=== PATIENT | male | born 1950 | race Caucasian/White ===

== ENCOUNTER 2022-03-31 08:43 | Emergency (ER) | payer MEDICARE, SELFPAY ==
[2022-03-31 08:48] VITALS: BP 108/58; PULSE 61; RESP 20; TEMP 36.7; O2SAT 97
--- NOTE | 2022-03-31 09:25 | ED.URI ---
HPI - URI/Sore Throat General Chief Complaint: Upper Respiratory Infection Stated Complaint: cold flu Time Seen by Provider: 03/31/22 09:44 Source: patient and RN notes reviewed Mode of arrival: ambulatory Limitations: no limitations History of Present Illness HPI Narrative: 71-year-old male presents concern for 4 day history of cough and nasal drainage. Reports his has similar symptoms that has been sick or longer. Reports he has been taking Mucinex and NyQuil with relief of symptoms. He denies fever, chills, sweats. Reports body aches. MD elicited complaint: cough and sore throat Related Data Home Medications Medication Instructions Recorded Confirmed aspirin 81 mg tablet,delayed 81 mg PO DAILY 04/14/19 03/31/22 release (Adult Low Dose Aspirin) ezetimibe 10 mg tablet (Zetia) 10 mg PO DAILY 04/14/19 03/31/22 rizatriptan 10 mg tablet See Rx Instructions PO .COMPLEX 04/14/19 03/31/22 esomeprazole magnesium 20 mg 20 mg PO DAILY 05/15/21 03/31/22 capsule,delayed release (Nexium 24HR) pravastatin 20 mg tablet 40 mg PO DAILY 05/15/21 03/31/22 atenolol 25 mg tablet 25 mg PO DAILY 07/09/21 03/31/22 hydrochlorothiazide 25 mg tablet 25 mg PO DAILY 07/09/21 03/31/22 Allergies Allergy/AdvReac Type Severity Reaction Status Date / Time No Known Allergies Allergy Verified 03/31/22 09:33 Review of Systems Review of Systems: CONSTITUTIONAL: Denies malaise, chills, sweats, or fever. EYES: Denies visual changes, redness, or discharge. ENT: Reports rhinorrhea, congestion. She sinus pain, otalgia and sore throat. CARDIOVASCULAR: Denies chest pain, palpitations, or edema. RESPIRATORY: Reports cough. Denies dyspnea. GASTROINTESTINAL: Denies abdominal pain, nausea, vomiting, diarrhea SKIN: Denies rash or itching. MUSCULOSKELETAL: Reports myalgia. NEUROLOGIC: Denies headache. All systems reviewed & are unremarkable except as noted in HPI and below PMFSH Past Medical History Medical History Lumbar disc herniation Surgical History Surgical History H/O lumbar discectomy History of angioplasty of peripheral vessel Hx of CABG Status post femorofemoral bypass surgery Family History Family History Mother Family history of cardiovascular disease Carcinoma of colon Social History Social History (Updated 03/04/22 @ 10:59 by Luna Tabor [facility]) Smoking status: Former smoker Second hand tobacco smoke exposure: No Smoking end date: 04/05/17 Alcohol intake: never Substance use type: does not use Lack of Transportation: No Lack of Food: Never True Current Housing: I Have Housing Concerned About Future Housing: No Difficulty Paying Gas/Electric Bills: No Difficulty Paying for Meds: No Currently Unemployed: No Education: High School Diploma/GED Difficulty w/ Childcare or Family Care: No Comments At time of signature, agree with nursing past medical, surgical, social and family history. There is no relevant family history pertinent to the presenting complaint Exam Narrative: GENERAL: Well-appearing, well-nourished, and in no acute distress. HEAD: Normocephalic EYES: PERRLA, conjunctivae clear ENT: Nares clear, turbinates edematous and erythematous, clear discharge. Mucous membranes moist. TM pearly [place] with dull light reflex bilaterally; no tragal tenderness. Oropharynx not erythematous without lesions. Tonsils not enlarged and without exudate, no drooling, no hoarseness, no trismus, uvula midline. NECK: Supple. No lymphadenopathy CHEST: Clear to auscultation, breath sounds equal. No wheezing, rhonchi, rales, or stridor. No respiratory distress, speaks in full sentences. HEART: Regular rate and rhythm. No murmur heard. SKIN: Warm, dry, no rash. NEURO: Alert and oriented x3. PSYCH: Normal mood and affect Course Course Emerg
== END 2022-03-31 09:44 | disposition home or self-care (01) ==
PROVIDERS: Emergency Provider Nurse Practitioner; PCP Family Medicine
DX: J40 Bronchitis, not specified as acute or chronic (principal); Z87.891 Personal history of nicotine dependence; Z79.82 Long term (current) use of aspirin
CPT/HCPCS: 99213; G0463

== ENCOUNTER 2023-01-18 14:39 | Emergency (ER) | payer MEDICARE, SELFPAY ==
[2023-01-18] VITALS (9 sets, daily range): BP systolic 116–139; BP diastolic 46–96; PULSE 50–90; RESP 12–25; TEMP 37; O2SAT 93–100
--- NOTE | ~2023-01-18 | XR_ITS ---
XR chest 2V DATE: 01/18/2023 15:07 INDICATION: Cough for 2 to 3 weeks. Weakness. TECHNIQUE: PA and lateral views COMPARISON: None FINDINGS: Status post sternotomy. Normal heart size. No hilar or mediastinal enlargement. No pulmonary infiltrate or consolidation, pleural effusion or pulmonary vascular congestion or pneumo thorax. Mild degenerative spurring of the thoracic spine. IMPRESSION: Status post sternotomy No active cardiopulmonary disease Reviewed, dictated and finalized at location B.
--- NOTE | ~2023-01-18 | CT_ITS ---
EXAMINATION: CT thoracic lumbar wo con DATE: 01/18/2023 17:45 INDICATION: Mid back pain. TECHNIQUE: Computed tomography (CT) of the thoracic and lumbar spine was performed without intravenou s contrast. Automated exposure control and iterative reconstruction technique were employed. The dose -length product was 1199.08 mGy-cm. COMPARISON: None FINDINGS: CT THORACIC SPINE: There is mild dependent atelectasis in right lung. There are changes of coronary a rtery bypass grafting. There are calcifications of aortic valve. There is 7 degrees levocurvature of thoracic spine. There is mild chronic anterior wedging of T8-T12 vertebral bodies. There are Schmorl' s nodes at multiple levels. There is mildly decreased disc height at T5-T6, moderately decreased disc height at T7-T8, and mildly decreased disc height from T8-T9 through T10-T11. There is multilevel mi ld facet joint osteoarthritis. On the right, there is severe facet joint osteoarthritis at T7-T8, T8- T9, and T9-T10. On the left, there is severe facet joint osteoarthritis at T8-T9, and T10-T11. There is multilevel mild neural foraminal stenosis bilaterally. No central canal stenosis. CT LUMBAR SPINE: There are stents in the common iliac arteries. There is 3 degrees levocurvature of l umbar spine. There are Schmorl's nodes at multiple levels. There is mildly decreased disc height at L 2-L3. The following disc levels are specifically discussed: L1-L2: The disc does not extend beyond the endplate margin. There is mild bilateral facet joint osteo arthritis. There is no neural foraminal stenosis. There is no central canal stenosis. L2-L3: The disc is bulging. There is mild bilateral facet joint osteoarthritis. There is mild bilater al neural foraminal stenosis. There is mild central canal stenosis. L3-L4: The disc is bulging. There is severe right and moderate left facet joint osteoarthritis. There is mild bilateral neural foraminal stenosis. There is mild central canal stenosis. L4-L5: The disc is bulging. There is severe bilateral facet joint osteoarthritis. There is moderate b ilateral neural foraminal stenosis. There is mild central canal stenosis. L5-S1: The disc is bulging. There is severe bilateral facet joint osteoarthritis. There is mild bilat eral neural foraminal stenosis. There is mild central canal stenosis. IMPRESSION: 1. Moderate thoracic and lumbar spondylosis. Reviewed, dictated and finalized at location E.
--- NOTE | 2023-01-18 14:46 | ECG_ITS ---
Measurements Intervals [place] Rate: 100 P: 59 MD: 165 QRS: -64 QRSD: 101 T: 50 QT: 346 QTc: 447 Interpretive Statements SINUS TACHYCARDIA BASELINE ARTIFACT POSSIBLE LEFT ATRIAL ENLARGEMENT [-0.1mV P-WAVE IN V1/V2] INCOMPLETE RIGHT BUNDLE BRANCH BLOCK [90+ ms QRS DURATION, TERMINAL R IN V1/V2, 40+ ms S IN I/aVL/V4/V5/V6] LEFT ANTERIOR FASCICULAR BLOCK [QRS AXIS <= -45, QR IN I, RS IN II] ST DEVIATION AND MODERATE T-WAVE ABNORMALITY, CONSIDER ANTERIOR ISCHEMIA [-0.1+ mV T- WAVE IN V3/V4] ABNORMAL ECG NO PREVIOUS ECG AVAILABLE FOR COMPARISON Electronically Signed On 01-18-2023 17:13:20 CDT by Geoffrey Don M.D.
[2023-01-18 15:02] LABS: Basophils Percent Auto 0.1 % (0.2-1.2); Hematocrit 47.8 % (42.0-52.0); Hemoglobin 15.8 g/dL (14.0-18.0); Immature Granulocyte Absolute 0.02 K/mm3 (0.00-0.031); Immature Granulocyte Percent A 0.3 % (0-0.5); Lymphocytes Absolute Auto 1.05 K/mm3 (0.9-3.2); Lymphocytes Percent Auto 13.7 % (18.3-44.2); Mean Corpuscular HGB Conc 33.1 g/dl (32-36); Mean Corpuscular Hemoglobin 29.3 pg (26-34); Mean Corpuscular Volume 88.5 fl (80-100); Monocytes Absolute Auto 0.5 K/mm3 (0.1-0.6); Monocytes Percent Auto 6.4 % (2.6-8.5); Neutrophils Absolute Auto 6.1 K/mm3 (1.3-6.7); Neutrophils Percent Auto 79.5 % (45.5-73.1); Platelet Count Result 204 k/mm3 (150-375); Red Cell Distribution Width 12.4 % (11.5-14.5); White Blood Count 7.7 K/mm3 (4.5-10.0)
[2023-01-18 15:12] LABS: Alanine Aminotransferase 31 U/L (6-50); Alkaline Phosphatase 73 U/L (38-126); Anion Gap 10 mmol/L (8-16); Aspartate Amino Transferase 39 U/L (17-59); Bilirubin,Total 0.8 mg/dL (0.2-1.3); Blood Urea Nitrogen 21 mg/dL (9-20); Calcium 8.5 mg/dL (8.4-10.2); Carbon Dioxide 21 mmol/L (22-30); Chloride 103 mmol/L (98-107); Estimated CRCL calculation 55 ml/min; Estimated Glomerular Filt Rate > 60; Glucose 125 mg/dL (65-110); Sodium 134 mmol/L (137-145)
--- NOTE | 2023-01-18 17:35 | ED.GENADULT ---
HPI - General Adult General Chief complaint: Weakness Stated complaint: body aches and fever x 12 days Time Seen by Provider: 01/18/23 17:21 Source: patient Mode of arrival: ambulatory Limitations: no limitations History of Present Illness HPI narrative: This is a 72-year-old male with PMH of T2DM, CAD, lumbar radiculopathy who presents to the ED with chief complaint of generalized weakness for the past 2 weeks. Reports he feels this started with mid to lower back pain. Reports it radiates from the left side of the mid back down to the left side of the low back. Reports he has had history of lumbar radiculopathy, however today is not radiating into the legs. Reports the back pain makes his legs feel generally weak. States he has been able to ambulate it just takes longer than normal. Denies numbness, weakness, N/V/D, URI symptoms, shortness of breath, chest pain, urinary symptoms. Denies any falls or injuries. Denies bowel or bladder dysfunction. Related Data Home Medications Medication Instructions Recorded Confirmed aspirin 81 mg tablet,delayed 81 mg PO DAILY 04/14/19 09/02/22 release (Adult Low Dose Aspirin) ezetimibe 10 mg tablet (Zetia) 10 mg PO DAILY 04/14/19 09/02/22 rizatriptan 10 mg tablet See Rx Instructions PO .COMPLEX 04/14/19 09/02/22 esomeprazole magnesium 20 mg 20 mg PO DAILY 05/15/21 09/02/22 capsule,delayed release (Nexium 24HR) pravastatin 20 mg tablet 40 mg PO DAILY 05/15/21 09/02/22 atenolol 25 mg tablet 25 mg PO DAILY 07/09/21 09/02/22 hydrochlorothiazide 25 mg tablet 25 mg PO DAILY 07/09/21 09/02/22 Allergies Allergy/AdvReac Type Severity Reaction Status Date / Time No Known Allergies Allergy Verified 01/18/23 16:40 Review of Systems Review of Systems: All systems as dictated in [facility] Past Medical History Medical History Lumbar disc herniation Surgical History Surgical History H/O lumbar discectomy History of angioplasty of peripheral vessel Hx of CABG Status post femorofemoral bypass surgery Family History Family History Mother Family history of cardiovascular disease Carcinoma of colon Social History Social History Smoking status: Former smoker Second hand tobacco smoke exposure: No Smoking end date: 04/05/17 Alcohol intake: never Substance use type: does not use Lack of Transportation: No Lack of Food: Never True Current Housing: I Have Housing Concerned About Future Housing: No Difficulty Paying Gas/Electric Bills: No Difficulty Paying for Meds: No Currently Unemployed: No Education: High School Diploma/GED Difficulty w/ Childcare or Family Care: No Exam Narrative: GENERAL: Well-appearing, well-nourished, and in no acute distress. HEAD: Normocephalic, atraumatic. EYES: PERRLA and EOMI. ENT: Nares clear, no rhinorrhea or epistaxis. Mucous membranes moist. Oropharynx without tonsillar hypertrophy exudate or other lesions. NECK: Supple. No adenopathy or masses. CHEST: No respiratory distress. Clear to auscultation. No wheezes rales or rhonchi HEART: Regular rate and rhythm. No murmur heard. Normal peripheral pulses. ABDOMEN: Soft, nontender, nondistended, normal active bowel sounds. MSK: Normal range of motion. No edema. No tenderness throughout the CT LS spine. SKIN: Warm, dry, no rash. NEURO: Alert and oriented x3. No focal deficits. 5 out of 5 strength and sensation in the upper and lower extremities. Ambulatory. PSYCH: Normal mood and affect. Course Vital Signs Vital signs: Vital Signs Temperature 98.6 F 01/18/23 14:42 Pulse Rate 50 L 01/18/23 14:42 Respiratory Rate 18 01/18/23 14:42 Blood Pressure 116/46 L 01/18/23 14:42 Pulse Oximetry 100 01/18/23 14:42 Oxygen Delivery Room
[2023-01-18 18:21] LABS: Appearance Urine Clear (Clear); Bacteria Urine None Seen /hpf; Bilirubin Urine Negative (Negative); Blood Urine Negative (Negative); Color Urine Dark Yellow (Yellow); Glucose Urine UA Negative (Negative); Hyaline Casts Urine Present /lpf; Ketones Urine Trace mg/dL (Negative); Leukocyte Esterase Ur Negative LEU/UL (Negative); Nitrate Urine Negative (Negative); Non Pathogenic Casts >20; Protein Urine 2+ mg/dL (Negative); RBC Urine 0-2 /hpf (0-2); Specific Grav Ur 1.022 (1.001-1.035); Squamous Epithelial Cell Urine None seen /hpf (Few); WBC Urine 0-5 /hpf
[2023-01-18 18:22] LABS: Add Urine Microscopic? YES
== END 2023-01-18 18:48 | disposition home or self-care (01) ==
PROVIDERS: Emergency Medicine; Emergency Provider Physician Assistant; PCP Family Medicine
DX: M54.50 Low back pain, unspecified (principal); M54.6 Pain in thoracic spine; G89.29 Other chronic pain; I25.10 Atherosclerotic heart disease of native coronary artery without angina pectoris; E11.9 Type 2 diabetes mellitus without complications; Z95.1 Presence of aortocoronary bypass graft; Z87.891 Personal history of nicotine dependence; Z98.61 Coronary angioplasty status; Z79.82 Long term (current) use of aspirin; Z79.84 Long term (current) use of oral hypoglycemic drugs; R00.0 Tachycardia, unspecified; R94.31 Abnormal electrocardiogram [ECG] [EKG]; I45.10 Unspecified right bundle-branch block; M47.816 Spondylosis without myelopathy or radiculopathy, lumbar region; M47.814 Spondylosis without myelopathy or radiculopathy, thoracic region
CPT/HCPCS: 36415; 71046; 72128; 72131; 80053; 81001; 85025; 93005; 99284

== ENCOUNTER → 2023-01-26 09:06 | Outpatient (CLI) | payer MEDICARE, SELFPAY ==
--- NOTE | ~2023-01-26 | US_ITS ---
Abdominal Sonogram: Real-time sonographic imaging of the abdomen was performed. Clinical History: Abdominal pain Findings: The liver appears normal with no evidence of mass lesion or bile duct dilatation. Main por samm vein demonstrates normal direction of flow. The spleen is normal in size without evidence of foca l lesion. The gallbladder is well distended, and appears normal with no evidence of gallstone or wal l thickening. The common bile duct measures 6 mm. The pancreas is obscured by bowel gas shadowing. V isualized aorta and IVC are unremarkable. The right kidney measures 9.9 cm in length and the left kid dylan measures 10.7 cm. There is no hydronephrosis or renal calculus. Impression: No significant abnormality seen. Reviewed, dictated and finalized at [facility]. Impression: No significant abnormality seen.
== END ==
PROVIDERS: PCP Family Medicine; Visit Provider Nurse Practitioner Family
DX: R10.9 Unspecified abdominal pain (principal)
CPT/HCPCS: 76700

== ENCOUNTER 2023-09-15 09:52 | Outpatient (CLI) | payer MEDICARE, SELFPAY ==
--- NOTE | 2023-09-15 09:57 | ECHO_ITS ---
Patient Info Name: Salomón Galaviz Age: 73 years : 1950 Gender: Male Ht: 70 in Wt: 190 lbs BSA: 2.08 m2 HR: 70 bpm BP: 184 / 71 mmHg Technical Quality: Good Exam Date: 09/15/2023 10:13 AM Exam Location: Echo Lab Patient Status: Outpatient Admit Date: 09/15/2023 Staff Ordering Physician: Brayan Loo MD Shut Off Worker: Chago Lopez RDCS Attending Provider: Brayna Loo MD Referring Physician: Eze MORRISON; Exam Type: CA echo doppler color flow Study Info Indications R01.1 - Cardiac murmur, unspecified Complete two-dimensional, color flow and Doppler transthoracic echocardiogram is performed. Summary 1. Complete two-dimensional, color flow and Doppler transthoracic echocardiogram is performed. 2. Left ventricular chamber dimension is normal. 3. Left ventricular systolic function is normal, estimated at 55-60%. 4. Left ventricular septal wall motion is abnormal with septal motion related to bundle branch block. 5. The left ventricular diastolic function is normal. 6. E/e' 7 is not elevated. 7. The aortic valve is not well visualized. Cannot determine number of aortic valve leaflets. 8. There is mild aortic valve stenosis based on a peak velocity of 234 cm/s, mean gradient of 10 mmHg, and aortic valve area of 2.0 cm2. 9. There is moderate aortic valve sclerosis. 10. There is mild to moderate mitral valve regurgitation. 11. No pulmonary hypertension, estimated pulmonary arterial systolic pressure is 16 mmHg. 12. There is trace pulmonic regurgitation. Left Ventricle E/e' 7 is not elevated. Left ventricular chamber dimension is normal. Left ventricular systolic function is normal, estimated at 55-60%. Left ventricular septal wall motion is abnormal with septal motion related to bundle branch block. The left ventricular diastolic function is normal. Right Ventricle Right ventricular systolic function is normal and with normal TAPSE 1.8 cm. Right ventricular chamber dimension is normal. Left Atria Left atrial chamber dimension is normal. Right Atria Right atrial chamber dimension is normal. Aortic Valve The aortic valve is not well visualized. Cannot determine number of aortic valve leaflets. There is mild aortic valve stenosis based on a peak velocity of 234 cm/s, mean gradient of 10 mmHg, and aortic valve area of 2.0 cm2. There is moderate aortic valve sclerosis. There is no aortic valve regurgitation. Pulmonic Valve There is trace pulmonic regurgitation. Mitral Valve There is no mitral valve stenosis. There is mild to moderate mitral valve regurgitation. Tricuspid Valve There is no tricuspid valve regurgitation. No pulmonary hypertension, estimated pulmonary arterial systolic pressure is 16 mmHg. Pericardium/Pleural There is no pericardial effusion. Inferior Vena Cava Normal inferior vena cava with >50% collapse upon inspiration consistent with normal right atrial pressure, 5 mmHg. Aorta The aortic root size at the sinus of Valsalva is normal. Left Ventricular Outflow Tract Name Value Normal LVOT 2D LVOT Diameter 2.2 cm LVOT Doppler LVOT Peak Gradient 7 mmHg LVOT Mean Gradient 3 mmHg LVOT VTI
== END 2023-09-15 09:53 | disposition home or self-care (01) ==
LOC: ANHLAB 09:54
PROVIDERS: PCP Family Medicine; Visit Provider Family Medicine
DX: R01.1 Cardiac murmur, unspecified (principal); I08.0 Rheumatic disorders of both mitral and aortic valves
CPT/HCPCS: 93306

== ENCOUNTER 2023-10-04 10:14 | Outpatient (CLI) | payer MEDICARE, SELFPAY ==
--- NOTE | ~2023-10-04 | US_ITS ---
EXAMINATION: US art doppler w press LE BI DATE: 10/04/2023 11:25 INDICATION: Peripheral vascular disease TECHNIQUE: Segmental pressures and plethysmographic and Doppler waveforms of the brachial and lower e xtremity arteries were obtained. COMPARISON: None. FINDINGS: Right and left brachial artery pressures of 141 mm Hg and 149 mm Hg, respectively, are concordant (no rmal difference <= 30 mmHg). The right ankle-brachial index (SUSAN) is 1.05 (normal >= 0.9-1). The right great toe-brachial index (T BI) is 0.74 (normal >= 0.6-0.8). Arterial waveforms are biphasic with brisk systolic upstrokes throug hout. Cardiac arrhythmia is present. The left SUSAN is 1.03. The left TBI is 0.62. Arterial waveforms are biphasic with brisk systolic upstr okes throughout the arteries of the left lower limb. IMPRESSION: 1. Normal SUSAN's bilaterally. No significant occlusive disease. 2. Cardiac arrhythmia is present. Correlate with EKG. Reviewed, dictated and finalized at location B.
== END 2023-10-04 10:15 | disposition home or self-care (01) ==
PROVIDERS: PCP Family Medicine; Visit Provider Family Medicine
DX: I73.9 Peripheral vascular disease, unspecified (principal); I49.9 Cardiac arrhythmia, unspecified; M48.062 Spinal stenosis, lumbar region with neurogenic claudication; Z98.62 Peripheral vascular angioplasty status
CPT/HCPCS: 93923

== ENCOUNTER 2023-11-16 07:56 | Outpatient (CLI) | payer MEDICARE, SELFPAY ==
--- NOTE | ~2023-11-16 | NM_ITS ---
EXAMINATION: NM khris stress w perfusion DATE: 11/16/2023 10:03 INDICATION: Other chest pain. TECHNIQUE: Rest images were obtained following intravenous administration of 11.0 mCi Tc99m tetrofosm in (Myoview). The patient was infused intravenously with Lexiscan (regadenoson). Then, 32.2 mCi Tc99m tetrofosmin (Myoview) was administered intravenously, and stress images were obtained. Data was shawna nstructed into short axis and horizontal and vertical long axis SPECT images. Gated SPECT images were also obtained. COMPARISON: None. FINDINGS: There is no definite reversible or fixed perfusion abnormality to suggest ischemia or infar ction. There is no segmental wall motion abnormality. Left ventricular ejection fraction measures 6 3%. IMPRESSION: 1. No definite ischemia or infarct. 2. Normal left ventricular ejection fraction measuring 63%. Reviewed, dictated and finalized at location A.
--- NOTE | 2023-11-16 08:20 | EST_ITS ---
Patient Info Name: Salomón Galaviz Age: 73 years : 1950 Gender: Male Ht: 70 in Wt: 190 lbs BSA: 2.08 m2 HR: 64 bpm BP: 175 / 78 mmHg Heart Rhythm: Sinus Rhythm Exam Date: 11/16/2023 9:09 AM Exam Location: Echo Lab Patient Status: Outpatient Admit Date: 11/16/2023 Staff Ordering Physician: Loc Del Rio DO Attending Provider: Loc Del Rio DO Exercise Technologist: Tamika Walsh CT Exercise Physician: Loc Del Rio DO Exam Type: CA stress khris w NM Study Info Indications R07.89 - Other chest pain A regadenoson stress test was performed. Summary 1. 1. Negative lexiscan stress test for ischemic ST changes by ECG criteria. 2. 2. Baseline hypertension. 3. 3. Nuclear scan to follow and will be reported separately. Please correlate with it. 4. 4. Patient informed of the above results. Protocol: Lexiscan Stress ECG Details Stage: REST Duration (min): 1 min : 51 sec HR (bpm): 66 SBP (mmHg): 175 DBP (mmHg): 78 Stage: REST Duration (min): 10 min : 22 sec HR (bpm): 64 SBP (mmHg): 175 DBP (mmHg): 78 Stage: STAGE 1 Duration (min): 0 min : 59 sec HR (bpm): 71 SBP (mmHg): 154 DBP (mmHg): 86 Stage: RECOVERY Duration (min): 1 min : 0 sec HR (bpm): 73 SBP (mmHg): 154 DBP (mmHg): 86 Stage: RECOVERY Duration (min): 2 min : 0 sec HR (bpm): 67 SBP (mmHg): 154 DBP (mmHg): 86 Stage: RECOVERY Duration (min): 3 min : 0 sec HR (bpm): 66 SBP (mmHg): 159 DBP (mmHg): 80 Stage: RECOVERY Duration (min): 3 min : 25 sec HR (bpm): 70 SBP (mmHg): 159 DBP (mmHg): 80 Rest HR: 64 bpm Peak HR: 76 bpm Rest Sys BP: 175 mmHg Peak Sys BP: 159 mmHg Max Pred HR: 146 bpm % Max Pred HR: 52 % Target HR: 124 bpm Max RPP: 12,084 bpm*mmHg Termination Reason: Completed protocol Cardiac Symptoms: Shortness of breath Total Time: 1 min : 0 sec Rest Dolan BP: 78 mmHg Peak Dolan BP: 80 mmHg Total Dose: 0.4 mg Resting ECG Sinus rhythm, RBBB, LAFB. Stress ECG No ST changes. Arrhythmias None. Report Signatures
== END 2023-11-16 07:57 | disposition home or self-care (01) ==
PROVIDERS: PCP Family Medicine; Visit Provider Internal Medicine Cardiovascular Disease
DX: R07.89 Other chest pain (principal); I10 Essential (primary) hypertension
CPT/HCPCS: 78452; 93017; A9502; J2785

== ENCOUNTER 2024-09-22 | Day surgery (SDC) | payer MEDICARE, SELFPAY ==
[2024-09-06 12:25] VITALS: BMI 28.0
[2024-09-22] VITALS (7 sets, daily range): BP systolic 114–163; BP diastolic 37–100; PULSE 55–73; RESP 12–33; TEMP 36.4; O2SAT 97–100; BMI 26.2
--- OUTSIDE RECORDS SUMMARY | 2024-09-22 00:02 | XMS_ITS | Clinical Summary ---
Author Organization [facility] Address [address] [place] [address] Care Team Providers Care Radarman Name Role Phone No, Physician Primary Care Provider [phone] Goyo Hill MD Unavailable [phone] Seferino Hernandez MD Unavailable [phone] Allergies No known active allergies Medications pravastatin (PRAVACHOL) 20 mg tablet Take 20 mg by mouth daily. 3 05/03/2017 Active ezetimibe (ZETIA) 10 mg tablet Take 10 mg by mouth daily. 2 05/03/2017 Active aspirin 81 mg tablet Take 81 mg by mouth daily. Active omega-3 fatty acids-fish oil 300-1,000 mg capsule Take 1 g by mouth daily. Active HYDROcodone-kike taminophen (NORCO) 5-325 mg per tabletIndicatio ns:Pain Take 1 tablet by mouth every 8 (eight) hours as needed for pain for up to 10 doses Earliest Fill Date: 06/17/17. 10 tablet 06/17/[address] (PROTONIX) 40 mg EC tablet Take 1 tablet (40 mg total) by mouth 2 (two) times a day. 60 tablet 06/17/2017 Active rizatriptan (MAXALT) 10 mg tabletIndicatio ns:Migraine Take 10 mg by mouth once as needed for migraine. May repeat in 2 hours if unresolved. Do not exceed 30 mg in 24 hours. Active HYDROcodone-kike taminophen (NORCO) 5-325 mg per tabletIndicatio ns:Pain Take 1-2 tablets by mouth every 6 (six) hours as needed for pain. 10 tablet 06/28/2017 Active docusate sodium (COLACE) 100 mg capsuleIndicati ons:constipatio n Take 1 capsule (100 mg total) by mouth 2 (two) times a day. 60 capsule 1 06/28/2017 Active Active Problems Problem Noted Date Diagnosed Date Sciatica of left side 06/09/2017 Assessment & Plan (06/09/2017 2:05 AM EXTERNAL GRINDER TENDER): Outpatient follow-up. CAD (coronary artery disease) 06/09/2017 Assessment & Plan (06/09/2017 2:03 AM EXTERNAL GRINDER TENDER): Patient is on aspirin 81 mg and pravastatin at home. Will hold as patient is NPO at this time. Tobacco abuse 06/09/2017 Assessment & Plan (06/09/2017 2:03 AM EXTERNAL GRINDER TENDER): Patient has smoked 1 pack per day since age 14. He states he will be quitting. Perforated gastric ulcer 06/09/2017 Perforated viscus 06/08/2017 Assessment & Plan (06/09/2017 2:13 AM EXTERNAL GRINDER TENDER): Per OR notes patient had a perforated gastric ulcer which was repaired. He is postop day 1. He is currently in the intensive care unit under the care of the customer marketing manager. Management will be per him and surgery. Continue with FLIGHT TEST SHOP MECHANIC for pain control. Peritonitis 06/08/2017 Assessment & Plan (06/15/2017 5:24 PM CDT): He remains afebrile. He is tolerating full liquids. He had a good bowel movement that was somewhat loose. He is off most of the systemic antibiotics but remains on fluconazole which we will also discontinue. He is still receiving treatment for H pylori. We will continue to monitor for any infectious complications. Assessment & Plan (06/09/2017 2:05 AM EXTERNAL GRINDER TENDER): gastric ulcer perforation status post ex lap with repair. Postop day 1. Pain of upper abdomen V-tach Adynamic ileus Acute abdomen Surgical History Surgery Date Site/Laterality Comments CORONARY ARTERY BYPASS GRAFT 04/05/2001 - 04/04/2002 PERIPHERAL ARTERIAL STENT GRAFT 04/05/2003 - 04/04/2004 Bilateral bilateral legs Medical History Medical History Date Comments Coronary artery disease Myocardial infarction (HCC) Peripheral vascular disease Ruptured lumbar disc Social History Tobacco Use Types Packs/Day Years Used Date Smoking Tobacco: Former Cigarettes Q uit: 06/08/2017 Smokeless Tobacco: Never Alcohol Use Standard Drinks/Week Comments No 0 (1 standard drink = 0.6 oz pur e alcohol) Sex and Gender Information Value Date Recorded Sex Assigned at Not on file Legal Sex Male 12:15 AM EXTERNAL GRINDER TENDER Gender Identity Not on file Sexual Orientation Not on file Obstetrics History Last Filed Vital Signs Vital Sign Reading Time Taken Comments Blood Pressure 136/72 06/28/2017 2:32 PM CDT Pulse 82 06/17/2017 11:34 AM CDT Temperature 36.9 C (98.5 F) 06/17/2017 11:34 AM CDT Respiratory Rate 22 06/17/2017 11:34 AM CDT Oxygen Saturation 94% 06/17/2017 11:34 AM CDT Inhaled Oxygen Concentration - - Weight 77 kg (169 lb 11.2 oz) 06/28/2017 2:32 PM CDT Height 177.8 cm (5' 10) 06/28/2017 2:32 PM CDT Body Mass Index 24.35 06/28/2017 2:32 PM CDT Plan of Treatment Not on file Insurance Member Subscriber Plan / Payer (Ef fective 2017-Present) Name:SALOMÓN GALAVIZ Relation to Subscriber:Self Name:Salomón Galaviz Payer ID:[id number] (NAIC) Type: [place] Address: [facility] [id number] [id number] [employer] [place] [place] Advance Directives For more information, please contact: [phone] * Full Code (Latest Code Status on File) Date Activated Date Inactivated Comments 06/08/2017 1:13 PM 06/17/2017 6:16 PM Care Teams Radarman Relationship Specialty Start Date End Date No, Physician PCP - General 06/08/17 Goyo Hill MD [address] [facility] [address] [place] [address] Referring Physician Cardiovascular Disease 06/17/17 Seferino Hernandez MD [address] [facility] [address] [place] [address] Consulting Physician General Surgery 06/17/17
--- OUTSIDE RECORDS SUMMARY | 2024-09-22 00:02 | XMS_ITS | Encounter Summary ---
Author Organization [facility] Address 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
--- OUTSIDE RECORDS SUMMARY | 2024-09-22 00:02 | XMS_ITS | Encounter Summary ---
Author Organization [facility] Address 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
--- OUTSIDE RECORDS SUMMARY | 2024-09-22 00:02 | XMS_ITS | Encounter Summary ---
Author Organization [facility] Address [address] [place] [address] Care Team Providers Care Engineer Remote Control Diesel Name Role Phone Goyo Hill MD Primary Care Provider [phone]- [phone] Encounter Details Date Type Department Care Team (Late st Contact Info) Description 07/29/2000 Outpatient Historical [facility] Goyo Hill MD [address] 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
--- OUTSIDE RECORDS SUMMARY | 2024-09-22 00:02 | XMS_ITS | Encounter Summary ---
Author Organization [facility] Address 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
--- OUTSIDE RECORDS SUMMARY | 2024-09-22 00:02 | XMS_ITS | Encounter Summary ---
Author Organization [facility] Address 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
--- OUTSIDE RECORDS SUMMARY | 2024-09-22 00:02 | XMS_ITS | Encounter Summary ---
Author Organization [facility] Address 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
--- OUTSIDE RECORDS SUMMARY | 2024-09-22 00:02 | XMS_ITS | Encounter Summary ---
Author Organization [facility] Address 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
--- OUTSIDE RECORDS SUMMARY | 2024-09-22 00:02 | XMS_ITS | Referral Summary ---
Author Organization [facility] Address [address] [place] [address] Care Team Providers Care Generator Switchboard Operator Name Role Phone No, Physician Primary Care Provider Goyo Hill MD Unavailable [phone] Seferino Hernandez MD Unavailable [phone] Allergies No known active allergies Medications pravastatin [...] 06/09/2017 Assessment & Plan (06/09/2017 2:05 AM ACCOUNT MANAGER EMPLOYEE BENEFITS): Outpatient follow-up. CAD (coronary artery disease) 06/09/2017 Assessment & Plan (06/09/2017 2:03 AM ACCOUNT MANAGER EMPLOYEE BENEFITS): Patient is on aspirin 81 mg and pravastatin at home. Will hold as patient is NPO at this time. Tobacco abuse 06/09/2017 Assessment & Plan (06/09/2017 2:03 AM ACCOUNT MANAGER EMPLOYEE BENEFITS): Patient has smoked 1 pack per day since age 14. He states he will be quitting. Perforated gastric ulcer 06/09/2017 Perforated viscus 06/08/2017 Assessment & Plan (06/09/2017 2:13 AM ACCOUNT MANAGER EMPLOYEE BENEFITS): Per OR notes patient had a perforated gastric ulcer which was repaired. He is postop day 1. He is currently in the intensive care unit under the care of the soils engineer. Management will be per him and surgery. Continue with MARINE STRUCTURAL DESIGNER for pain control. Peritonitis 06/08/2017 Assessment & [...] complications. Assessment & Plan (06/09/2017 2:05 AM ACCOUNT MANAGER EMPLOYEE BENEFITS): gastric ulcer perforation status post ex lap with repair. Postop day 1. Pain of upper abdomen V-tach Adynamic ileus Acute abdomen Social History Tobacco Use Types Packs/Day Years Used Date Smoking Tobacco: Former Cigarettes Q uit: 06/08/2017 Smokeless Tobacco: Never Alcohol Use Standard Drinks/Week Comments No 0 (1 standard drink = 0.6 oz pur e alcohol) Sex and Gender Information Value Date Recorded Sex Assigned at Not on file Legal Sex Male 12:15 AM ACCOUNT MANAGER EMPLOYEE BENEFITS Gender Identity Not on file Sexual Orientation Not on file Last Filed Vital Signs Vital Sign Reading [...] Plan of Treatment Not on file Insurance [employer] [place] Advance Directives For more information, please contact: [phone] * Full Code (Latest Code Status on File) Date Activated Date Inactivated Comments 06/08/2017 1:13 PM 06/17/2017 6:16 PM Care Teams Generator Switchboard Operator Relationship Specialty Start Date End Date No, Physician PCP - General 06/08/17 Goyo Hill MD [address] [facility] [address] [place] [address] Referring Physician Cardiovascular Disease 06/17/17 Seferino Hernandez MD [address] [facility] [address] [place], [place] [phone] Consulting Physician General Surgery 06/17/17
--- OUTSIDE RECORDS SUMMARY | 2024-09-22 00:02 | XMS_ITS | Encounter Summary ---
Author Organization [facility] Address 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
--- OUTSIDE RECORDS SUMMARY | 2024-09-22 00:02 | XMS_ITS | Clinical Summary ---
Author Organization [facility] Address [address] [place] [address] Phone Care Team Providers Care Medicare Compliance Auditor Name Role Phone Goyo Hill MD Primary Care Provider [phone]- [phone] Allergies No known active allergies Medications EZETIMIBE (ZETIA ORAL) Take by mouth. Ac tive PRAVASTATIN SODIUM (PRAVASTATIN ORAL) Take by mouth. Activ e aspirin (ADITHYA) 81 mg Oral Tab Take by mouth. Active OTHERIndication s:rizatriptam Provider please include Medication name, dose, route and frequency . Active Active Problems Problem Noted Date Diagnosed Date History of adenomatous polyp of colon 05/29/2012 Overview (06/03/2015): 05/2015: tubular adenoma and predominantly hyperplastic polyps (9 total). Follow up screening colonoscopy 3 year. 05/2012: Mixed hyperplastic and adenomatous. Mom with h/o colon ca. F/U recommended 3 years. 02/2009: > 20 hyperplastic polyps. 05/2001: Multiple hyperplastic polyps. 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 Gender Identity Not on file Sexual Orientation Not on file Plan of Treatment Health Maintenance Due Date Last Done Comments DTAP/TDAP/TD VACCINES (1 - Tdap) 1968 FIT-DNA Q 3 years 1994 FIT/FOBT Q 1 year 1994 Flex Sig/CT Colonography Q 5 years 1994 PNEUMOCOCCAL VACCINE 50+ YEA RS (1 of 1 - PCV) 1999 ZOSTER VACCINE (1 of 2) 1999 COLORECTAL SCREENING 05/30/2018 05/30/2015, 05/30/2015, 05/25/2012, Additional history exists Colorectal Cancer Screening 05/30/2018 INFLUENZA VACCINE (#1) 2023 RSV VACCINE (60+ or ) (1 - 1-dose 75+ series) 2024 Procedures Procedure Name Priority Date/Time Associated Diagnosis Comments ENDOSCOPY, COLON, SCREENING Routine 05/30/2015 from Last 3 Months or Most Recently Relevant to Health Maintenance Results * (ABNORMAL) ENDOSCOPY, COLON, SCREENING (05/30/2015) Mino Treviño MD GI PROCEDURE ORDERABLES Edited R esult - [facility] from Last 3 Months or Most Recently Relevant to Health Maintenance Insurance * Guarantor: Salomón Galaviz Account Type Relation to Patient Date of Phone Billing Address Personal/Family Self 1950 [phone] (Work) [address] [place] [id number] [employer] PPO Care Teams Medicare Compliance Auditor Relationship Specialty Start Date End Date Goyo Hill MD [address] [facility] [address] [place] [address] PCP - General Interventional Cardiology 05/03/12
--- OUTSIDE RECORDS SUMMARY | 2024-09-22 00:02 | XMS_ITS | Encounter Summary ---
Author Organization [employer] Address 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
--- NOTE | 2024-09-22 09:12 | P.PNAN_ITS ---
Anes - Initial Pre Proc Eval Procedure: Operation Date: 09/22/24 10:15 Proposed Procedures p Esophagogastroduodenoscopy - Akshat Logan MD Date/Time: 09/22/24 09:12 Surgeon: Akshat Logan MD Pre Op Diagnosis: GERD Patient Data Age: 74 Gender: M Height: 1.78 m Weight: 83 kg Last Vital Signs Temp 97.5 F L 09/22/24 09:03 Pulse 55 L 09/22/24 09:03 Resp 17 09/22/24 09:03 BP 142/87 H 09/22/24 09:03 Pulse Ox 98 09/22/24 09:03 O2 Del Method Room Air 09/22/24 09:03 Allergies Allergy/AdvReac Type Severity Reaction Status Date / Time No Known Allergies Allergy Verified 09/22/24 09:02 Home Medications ?Medication ?Instructions ?Recorded ?Confirmed ?Type aspirin 81 mg tablet,delayed 81 mg PO DAILY 04/14/19 09/22/24 History release (Adult Low Dose Aspirin) metformin 500 mg tablet,extended 500 mg PO DAILY #90 tabs 08/18/23 09/22/24 Rx release 24 hr atenolol 25 mg tablet 25 mg PO DAILY #90 tabs 04/19/24 09/06/24 Rx losartan 50 mg tablet 50 mg PO DAILY #90 tabs 04/19/24 09/22/24 Rx acetaminophen 325 mg capsule 325 mg PO Q6H PRN pain #90 caps 06/12/24 09/22/24 Rx pravastatin 40 mg tablet 40 mg PO QHS #90 tabs 06/12/24 09/22/24 Rx tramadol 50 mg tablet 50 mg PO Q6H PRN pain #45 tabs 06/12/24 09/22/24 Rx esomeprazole magnesium 40 mg 40 mg PO DAILY #90 caps 07/10/24 09/22/24 Rx capsule,delayed release sucralfate 1 gram tablet (Carafate) 1 g PO TID PRN GERD #30 tabs 07/10/24 09/22/24 Rx Patient hx anesthesia problems: none Family hx anesthesia problems: none Results Review: All pre-operative results and documents have been reviewed as part of the pre- operative evaluation. [facility] Past Medical History Medical History Lumbar disc herniation Surgical History Surgical History History of angioplasty of peripheral vessel H/O lumbar discectomy Status post femorofemoral bypass surgery Hx of CABG Family History Family History Mother Family history of cardiovascular disease Carcinoma of colon Unknown Diabetes mellitus Social History Social History Social History: caffeine use Smoking status: Former smoker Tobacco type: cigarettes Second hand tobacco smoke exposure: No Smoking end date: 04/05/17 Alcohol intake: never Substance use type: does not use Lack of Transportation: No Lack of Food: Never True Current Housing: I Have Housing Concerned About Future Housing: No Difficulty Paying Gas/Electric Bills: No Difficulty Paying for Meds: No Currently Unemployed: No Education: High School Diploma/GED Difficulty w/ Childcare or Family Care: No Living arrangements: with family Occupation/Education: retired Gender identity (if verbalized by the patient): Male Spiritual care concerns: No Anes - Eval Final PreProcedure Day of Procedure 09/22/24 09:12 Patient weight: normal Heart: regular rate and rhythm Lungs: clear to auscultation Airway: Mallampati scale class II Neurological: alert and oriented Last oral intake: >/= 8 hours ASA classification: III Emergent: no Anesthetic plan: proceed Anesthesia type and monitoring: general GIVS and standard monitoring Results Review: All pre-operative results and documents have been reviewed as part of the pre- operative evaluation. Informed Consent: The patient's anesthetic plan and its attendant risks and benefits were discussed with the patient/family/POA. Questions were solicited and answers provided to the satisfaction of the patient/family/POA.
[2024-09-22] MEDS: LACTATED RINGERS 1,000 ML 150 ML IV CONT ×2 (09:23→10:59)
[2024-09-22 09:24] LABS: Glucose Point of Care 105 mg/dl (65-105)
--- NOTE | 2024-09-22 09:55 | PM.HPGS ---
History of Present Illness History of Present Illness Consent: Risks, benefits, and alternatives have been discussed and questions answered. Patient agrees to proceed with procedure. Chief complaint: GERD Narrative: Salomón Galaviz is a 74 year old male here for first EGD, taking nexium for years but recently more symptomatic and his doctor added carafate Review of Systems Review of Systems: All systems reviewed & are unremarkable except as noted in HPI and below PMFSH Past Medical History Medical History Lumbar disc herniation Surgical History Surgical History History of angioplasty of peripheral vessel H/O lumbar discectomy Status post femorofemoral bypass surgery Hx of CABG Family History Family History Mother Family history of cardiovascular disease Carcinoma of colon Unknown Diabetes mellitus Social History Social History Social History: caffeine use Smoking status: Former smoker Tobacco type: cigarettes Second hand tobacco smoke exposure: No Smoking end date: 04/05/17 Alcohol intake: never Substance use type: does not use Lack of Transportation: No Lack of Food: Never True Current Housing: I Have Housing Concerned About Future Housing: No Difficulty Paying Gas/Electric Bills: No Difficulty Paying for Meds: No Currently Unemployed: No Education: High School Diploma/GED Difficulty w/ Childcare or Family Care: No Living arrangements: with family Occupation/Education: retired Gender identity (if verbalized by the patient): Male Spiritual care concerns: No Meds Home Medications and Allergies Home Medications ?Medication ?Instructions ?Recorded ?Confirmed ?Type aspirin 81 mg tablet,delayed 81 mg PO DAILY 04/14/19 09/22/24 History release (Adult Low Dose Aspirin) metformin 500 mg tablet,extended 500 mg PO DAILY #90 tabs 08/18/23 09/22/24 Rx release 24 hr atenolol 25 mg tablet 25 mg PO DAILY #90 tabs 04/19/24 09/06/24 Rx losartan 50 mg tablet 50 mg PO DAILY #90 tabs 04/19/24 09/22/24 Rx acetaminophen 325 mg capsule 325 mg PO Q6H PRN pain #90 caps 06/12/24 09/22/24 Rx pravastatin 40 mg tablet 40 mg PO QHS #90 tabs 06/12/24 09/22/24 Rx tramadol 50 mg tablet 50 mg PO Q6H PRN pain #45 tabs 06/12/24 09/22/24 Rx esomeprazole magnesium 40 mg 40 mg PO DAILY #90 caps 07/10/24 09/22/24 Rx capsule,delayed release sucralfate 1 gram tablet (Carafate) 1 g PO TID PRN GERD #30 tabs 07/10/24 09/22/24 Rx Allergies Allergy/AdvReac Type Severity Reaction Status Date / Time No Known Allergies Allergy Verified 09/22/24 09:02 Vital Signs Vital Signs - 24 hr 09/22/24 09:03 Temperature 97.5 F L Pulse Rate 55 L Respiratory Rate 17 Blood Pressure 142/87 H Pulse Oximetry 98 Oxygen Delivery Room Air Exam Const: General: comfortable and no acute distress HENMT: Face/Nose/Sinus: Normal nares present Eyes: General: appearance normal, both eyes and all related structures Neck: Neck: no JVD Resp: Auscultation: clear to auscultation bilaterally Cardio: Rate: regular rate Rhythm: regular rhythm GI: Inspection: non-distended GI Palp: Yes Soft to palpation Skin: General skin exam: normal color Neuro: General: gait normal Speech: normal speech Extrem: General: normal to inspection Psych: Mental Status: mental status grossly normal Assessment and Plan Assessment and plan (1) GERD (gastroesophageal reflux disease): Code(s): K21.9 - Gastro-esophageal reflux disease without esophagitis Status: Acute Assessment and Plan: egd with bx
--- NOTE | 2024-09-22 10:11 | ECG_ITS ---
Test Date: 2024-09-22 10:17:48 Measurements Intervals [place] Rate: 63 P: 39 [place]: 212 QRS: -31 QRSD: 121 T: 2 QT: 404 QTc: 414 Interpretive Statements SINUS RHYTHM WITH FIRST DEGREE AV BLOCK LEFT AXIS DEVIATION DELAYED PRECORDIAL R/S TRANSITION BORDERLINE ST-T WAVE ABNORMALITY- INFERIOR LEADS BASELINE ARTIFACT- I, II, III, AVR, AVL, AVF, V1-V2 BORDERLINE ECG No previous ECG available for comparison Electronically Signed On 09-22-2024 10:44:37 CDT by Loc Del Rio D.O.
--- NOTE | 2024-09-22 10:43 | SUR.OPER ---
Addendum entered by Nora Dean RN 09/22/24 10:52: 1016 Pt taken back to pre op area. Original Note: 0936 Pt brought into intra op room and hooked up to monitors. Abnormal heart rhythm noted by the CARE CENTER MANAGER. Dr. Grissom anesthesiologist at bedside. Procedure postponed and pt taken back to pre op room for an EKG per Dr. Grissom.
--- NOTE | 2024-09-22 10:45 | SUR.PHASEII ---
Pt going back to procedure room to have EGD performed at 1051
--- NOTE | 2024-09-22 11:00 | S_PTH ---
PATIENT: Salomón Galaviz LOC: ERIC Bonilla#:[id number] AGE/SX: 74/M ROOM: RE09/22/[address]: Akshat Logan MD : 1950 BED: DIS: 09/22/2024 SPEC #: [id number] RECD: 09/22/24 11:41 STATUS: GILMER REQ #: [id number] ELLIE: 09/22/24 11:[address]: Akshat Logan DEPT: [facility] Surgical RECD BY: Katalina Quiroz ENTERED: 09/22/24 11:42 SP TYPE: Surgical OTHR DR: Brayan Loo MD Tissues: A - Esophageal Biopsy B - Gastric Biopsy Procedures: Hematoxylin and Eosin Stain Gross and Microscopic Level 4
[2024-09-22 11:57] LABS: HPYLORIRESULT Negative (Negative)
[2024-09-22 12:29] LABS: HPYLORIRESULT Negative (Negative)
== END 2024-09-22 11:36 | disposition home or self-care (01) ==
PROVIDERS: Anesthesiology; PCP Family Medicine; Referring Provider Nurse Practitioner Family; Visit Provider Internal Medicine Gastroenterology
PROC: 0DJ08ZZ Inspection of Upper Intestinal Tract, Via Natural or Artificial Opening Endoscopic (ICD-10-PCS; CPT 43239; principal; 2024-09-22 10:15)
DX: K21.9 Gastro-esophageal reflux disease without esophagitis (principal); K22.70 Barrett's esophagus without dysplasia; R07.89 Other chest pain; K29.70 Gastritis, unspecified, without bleeding; K29.80 Duodenitis without bleeding; Z87.891 Personal history of nicotine dependence
CPT/HCPCS: 43239; 82948; 87081; 88305; 93005; J1596; J2003; J2704; J7120

== ENCOUNTER 2025-02-22 00:32 | Day surgery (SDC) | payer MEDICARE, SELFPAY ==
[2025-02-06 13:26] VITALS: BMI 26.5
--- OUTSIDE RECORDS SUMMARY | 2025-02-22 02:03 | XMS_ITS | Encounter Summary ---
Author Organization [facility] Address 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
--- OUTSIDE RECORDS SUMMARY | 2025-02-22 02:03 | XMS_ITS | Encounter Summary ---
Author Organization [facility] Address 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
--- OUTSIDE RECORDS SUMMARY | 2025-02-22 02:03 | XMS_ITS | Encounter Summary ---
Author Organization [facility] Address 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
--- OUTSIDE RECORDS SUMMARY | 2025-02-22 02:03 | XMS_ITS | Encounter Summary ---
Author Organization [facility] Address 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
--- OUTSIDE RECORDS SUMMARY | 2025-02-22 02:03 | XMS_ITS | Encounter Summary ---
Author Organization [facility] Address 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
--- OUTSIDE RECORDS SUMMARY | 2025-02-22 02:03 | XMS_ITS | Clinical Summary ---
Author Organization [facility] Address [address] [place] [address] Care Team Providers Care Cnc Specialist Name Role Phone No, Physician Primary Care Provider [phone] Goyo Hill MD Unavailable [phone] Seferino Hernandez MD Unavailable [phone] Allergies No known active allergies Medications pravastatin (PRAVACHOL) 20 mg tablet Take 20 mg by mouth daily. 3 05/03/2017 Active ezetimibe (ZETIA) 10 mg tablet Take 10 mg by mouth daily. 2 05/03/2017 Active aspirin 81 mg tablet Take 81 mg by mouth daily. Active omega-3 fatty acids-fish oil 300-1,000 mg capsule Take 1 g by mouth daily. Active HYDROcodone-kkie taminophen (NORCO) 5-325 mg per tabletIndicatio ns:Pain [...] 06/09/2017 Assessment & Plan (06/09/2017 2:05 AM EDUCATIONAL ASSISTANT TEACHER): Outpatient follow-up. CAD (coronary artery disease) 06/09/2017 Assessment & Plan (06/09/2017 2:03 AM EDUCATIONAL ASSISTANT TEACHER): Patient is on aspirin 81 mg and pravastatin at home. Will hold as patient is NPO at this time. Tobacco abuse 06/09/2017 Assessment & Plan (06/09/2017 2:03 AM EDUCATIONAL ASSISTANT TEACHER): Patient has smoked 1 pack per day since age 14. He states he will be quitting. Perforated gastric ulcer 06/09/2017 Perforated viscus 06/08/2017 Assessment & Plan (06/09/2017 2:13 AM EDUCATIONAL ASSISTANT TEACHER): Per OR notes patient had a perforated gastric ulcer which was repaired. He is postop day 1. He is currently in the intensive care unit under the care of the associate application developer. Management will be per him and surgery. Continue with WELFARE INTERVIEWER for pain control. Peritonitis 06/08/2017 Assessment & [...] complications. Assessment & Plan (06/09/2017 2:05 AM EDUCATIONAL ASSISTANT TEACHER): gastric ulcer perforation status post ex lap [...] on file Legal Sex Male 12:15 AM EDUCATIONAL ASSISTANT TEACHER Gender Identity Not on file Sexual [...] Plan of Treatment Not on file Insurance [employer] [place] Advance Directives For more information, please contact: [phone] * Full Code (Latest Code Status on File) Date Activated Date Inactivated Comments 06/08/2017 1:13 PM 06/17/2017 6:16 PM Care Teams Cnc Specialist Relationship Specialty Start Date End Date No, Physician PCP - General 06/08/17 Goyo Hill MD [address] [facility] [address] [place] [address] Referring Physician Cardiovascular Disease 06/17/17 Seferino Hernandez MD [address] [facility] [address] [place] [address] Consulting Physician General Surgery 06/17/17
--- OUTSIDE RECORDS SUMMARY | 2025-02-22 02:03 | XMS_ITS | Encounter Summary ---
Author Organization [facility] Address [address] [place] [address] Care Team Providers Care Service Counter Cashier Name Role Phone Goyo Hill MD Primary Care Provider [phone]- [phone] Encounter Details Date Type Department Care Team (Late st Contact Info) Description 05/11/2000 Outpatient Historical [facility] Goyo Hill MD [address] [facility] [address] [place] [address] Social History Tobacco Use Types Packs/Day Years Used Date Smoking Tobacco: Never Assessed Sex and Gender Information Value Date Recorded Sex Assigned at Not on file Legal Sex Male 4:47 AM BUILDING ARCHITECT Gender Identity Not on file Sexual Orientation Not on file documented as of this encounter Plan of Treatment Not on file documented as of this encounter Visit Diagnoses Not on filedocumented in this encounter Care Teams Service Counter Cashier Relationship Specialty Start Date End Date Goyo Hill MD [address] [facility] [address] [place] [address] PCP - General Interventional Cardiology 05/03/12 documented as of this encounter
--- OUTSIDE RECORDS SUMMARY | 2025-02-22 02:03 | XMS_ITS | Clinical Summary ---
Author Organization [facility] Address [address] [place] [address] Phone Care Team Providers Care Sole Stainer Name Role Phone Goyo Hill MD Primary Care Provider [phone]- [phone] Allergies No known active allergies Medications EZETIMIBE [...] on file Legal Sex Male 4:47 AM ADMINISTRATIVE ASSISTANT COORDINATOR Gender Identity Not on file Sexual Orientation [...] Additional history exists Colorectal Cancer Screening 05/30/2018 RSV VACCINE (60+ or ) (1 - 1-dose 75+ series) 2024 INFLUENZA VACCINE (#1) 2024 Procedures Procedure Name Priority Date/Time Associated [...] of Phone Billing Address Personal/Family Self 1950 [phone] (Work) [address] [place] [address] [employer] Care Teams Sole Stainer Relationship Specialty Start Date End Date Goyo Hill MD [address] [facility] [address] [place] [address] PCP - General Interventional Cardiology 05/03/12
--- OUTSIDE RECORDS SUMMARY | 2025-02-22 02:03 | XMS_ITS | Encounter Summary ---
Author Organization [facility] Address [address] [place] [address] Care Team Providers Care Principal Cloud Architect Name Role Phone Goyo Hill MD Primary Care Provider [phone]- [phone] Encounter Details Date Type Department Care Team (Late st Contact Info) Description 07/29/2000 Outpatient Historical [facility] Goyo Hill MD [address] [facility] [address] [place] [address] Social History Tobacco Use Types Packs/Day Years Used Date Smoking Tobacco: Never Assessed Sex and Gender Information Value Date Recorded Sex Assigned at Not on file Legal Sex Male 4:47 AM INTERVIEWING CLERK Gender Identity Not on file Sexual Orientation Not on file documented as of this encounter Plan of Treatment Not on file documented as of this encounter Visit Diagnoses Not on filedocumented in this encounter Care Teams Principal Cloud Architect Relationship Specialty Start Date End Date Goyo Hill MD [address] [facility] [address] [place] [address] PCP - General Interventional Cardiology 05/03/12 documented as of this encounter
--- OUTSIDE RECORDS SUMMARY | 2025-02-22 02:03 | XMS_ITS | Encounter Summary ---
Author Organization [facility] Address [address] [place] [address] Care Team Providers Care Trench Pipe Layer Helper Name Role Phone Goyo Hill MD Primary Care Provider [phone]- [phone] Encounter Details Date Type Department Care Team (Late st Contact Info) Description 09/10/2000 Outpatient Historical HIS [facility] Goyo Hill MD [address] [facility] [address] [place] [address] Social History Tobacco Use Types Packs/Day Years Used Date Smoking Tobacco: Never Assessed Sex and Gender Information Value Date Recorded Sex Assigned at Not on file Legal Sex Male 4:47 AM MATTRESS STUFFER Gender Identity Not on file Sexual Orientation Not on file documented as of this encounter Plan of Treatment Not on file documented as of this encounter Visit Diagnoses Not on filedocumented in this encounter Care Teams Trench Pipe Layer Helper Relationship Specialty Start Date End Date Goyo Hill MD [address] [facility] [address] [place] [address] PCP - General Interventional Cardiology 05/03/12 documented as of this encounter
--- OUTSIDE RECORDS SUMMARY | 2025-02-22 02:03 | XMS_ITS | Encounter Summary ---
Author Organization [facility] Address [address] [place] [address] Care Team Providers Care Sponge Press Operator Name Role Phone Goyo Hill MD Primary Care Provider [phone]- [phone] Encounter Details Date Type Department Care Team (Late st Contact Info) Description 05/04/2000 Outpatient Historical [facility] Goyo Hill MD [address] [facility] [address] [place] [address] Social History Tobacco Use Types Packs/Day Years Used Date Smoking Tobacco: Never Assessed Sex and Gender Information Value Date Recorded Sex Assigned at Not on file Legal Sex Male 4:47 AM ADVERTISING PHOTOGRAPHER Gender Identity Not on file Sexual Orientation Not on file documented as of this encounter Plan of Treatment Not on file documented as of this encounter Visit Diagnoses Not on filedocumented in this encounter Care Teams Sponge Press Operator Relationship Specialty Start Date End Date Goyo Hill MD [address] [facility] [address] [place] [address] PCP - General Interventional Cardiology 05/03/12 documented as of this encounter
[2025-02-22 07:20] VITALS: BP 128/57; PULSE 71; RESP 18; TEMP 36.1; O2SAT 98
[2025-02-22] MEDS: LACTATED RINGERS 1,000 ML 150 ML IV CONT (07:29)
--- NOTE | 2025-02-22 07:47 | P.PNAN_ITS ---
Anes - Initial Pre Proc Eval Procedure: Operation Date: 02/22/25 08:30 Proposed Procedures p Screening Colonoscopy - Akshat Logan MD Date/Time: 02/22/25 07:47 Surgeon: Akshat Logan MD Pre Op Diagnosis: Personal history of colon polyps, unspecified Patient Data Age: 74 Gender: M Height: 1.78 m Weight: 82.8 kg Last Vital Signs Temp 36.1 C L 02/22/25 07:20 Pulse 71 02/22/25 07:20 Resp 18 02/22/25 07:20 BP 128/57 L 02/22/25 07:20 Pulse Ox 98 02/22/25 07:20 O2 Del Method Room Air 02/22/25 07:20 Allergies Allergy/AdvReac Type Severity Reaction Status Date / Time No Known Allergies Allergy Verified 02/22/25 07:19 Home Medications ?Medication ?Instructions ?Recorded ?Confirmed ?Type aspirin 81 mg tablet,delayed 81 mg PO DAILY 04/14/19 1 04/24/24 History release (Adult Low Dose Aspirin) metformin 500 mg tablet,extended 500 mg PO DAILY #90 t abs 08/18/23 02/22/25 Rx release 24 hr acetaminophen 325 mg capsule 325 mg PO Q6H PRN pain #9 0 caps 06/12/24 02/06/25 Rx pravastatin 40 mg tablet 40 mg PO QHS #90 tabs 02/22/25 Rx sucralfate 1 gram tablet (Carafate) 1 g PO TID PRN ZHENG D #30 tabs 07/10/24 02/06/25 Rx esomeprazole magnesium 40 mg 40 mg PO BIDWM #180 caps 10/11/24 02/22/25 Rx capsule,delayed release atenolol 25 mg tablet 12.5 mg (1/2 x 25 mg) PO CECI LY #45 11/10/24 02/22/25 Rx tabs losartan 50 mg tablet See Rx Instructions .Route 0 12/05/24 02/22/25 Rx .COMPLEX #90 tabs tramadol 50 mg tablet 50 mg PO Q6H PRN pain #60 ta bs 12/18/24 02/06/25 Rx Laboratory Tests 02/22/25 07:27 POC Capillary Glucose 121 H mg/dl (65-105) Patient hx anesthesia problems: none Family hx anesthesia problems: none Results Review: All pre-operative results and documents have been reviewed as part of the pre- operative evaluation. [facility] Past Medical History Medical History (Updated 02/22/25 @ 07:47 by Andrzej Major MD) Valvular heart disease Type 2 diabetes mellitus Hypertension Endocarditis Lumbar disc herniation Surgical History Surgical History History of angioplasty of peripheral vessel H/O lumbar discectomy Status post femorofemoral bypass surgery Hx of CABG Family History Family History Mother Family history of cardiovascular disease Carcinoma of colon Unknown Diabetes mellitus Social History Social History Social History: caffeine use Smoking status: Former smoker Tobacco type: cigarettes Second hand tobacco smoke exposure: No Smoking end date: 04/05/17 Alcohol intake: never Substance use type: does not use Do You Feel Safe in your Home?: Yes Lack of Transportation: No Lack of Food: Never True Current Housing: I Have Housing Concerned About Future Housing: No Difficulty Paying Gas/Electric Bills: No Difficulty Paying for Meds: No Currently Unemployed: No Education: High School Diploma/GED Difficulty w/ Childcare or Family Care: No Living arrangements: with family Occupation/Education: retired Gender identity (if verbalized by the patient): Male Spiritual care concerns: No Anes - Eval Final PreProcedure Day of Procedure 02/22/25 07:47 Patient weight: overweight Heart: regular rate and rhythm Lungs: clear to auscultation Airway: Mallampati scale class II Neurological: alert and oriented Last oral intake: >/= 8 hours ASA classification: III Emergent: no Anesthetic plan: proceed Anesthesia type and monitoring: general GIVS and standard monitoring Results Review: All pre-operative results and documents have been reviewed as part of the pre- operative evaluation. Informed Consent: The patient's anesthetic plan and its attendant risks and benefits were discussed with the patient/family/POA. Questions were solicited and answers provided to the satisfaction of the patient/family/POA.
--- NOTE | 2025-02-22 08:13 | P.HP_ITS ---
History of Present Illness History of Present Illness Consent: Risks, benefits, and alternatives have been discussed and questions answered. Patient agrees to proceed with procedure. Chief complaint: Personal history of colon polyps, unspecified Narrative: Salomón Galaviz is a 74 year old male here for colonoscopy, h/o polyp Review of Systems Review of Systems: All systems reviewed & are unremarkable except as noted in HPI and below PMFSH Past Medical History Medical History (Updated 02/22/25 @ 08:14 by Akshat Logan MD) Colon cancer screening Valvular heart disease Type 2 diabetes mellitus Hypertension Endocarditis Lumbar disc herniation Surgical History Surgical History History of angioplasty of peripheral vessel H/O lumbar discectomy Status post femorofemoral bypass surgery Hx of CABG Family History Family History Mother Family history of cardiovascular disease Carcinoma of colon Unknown Diabetes mellitus Social History Social History Social History: caffeine use Smoking status: Former smoker Tobacco type: cigarettes Second hand tobacco smoke exposure: No Smoking end date: 04/05/17 Alcohol intake: never Substance use type: does not use Do You Feel Safe in your Home?: Yes Lack of Transportation: No Lack of Food: Never True Current Housing: I Have Housing Concerned About Future Housing: No Difficulty Paying Gas/Electric Bills: No Difficulty Paying for Meds: No Currently Unemployed: No Education: High School Diploma/GED Difficulty w/ Childcare or Family Care: No Living arrangements: with family Occupation/Education: retired Gender identity (if verbalized by the patient): Male Spiritual care concerns: No Meds Home Medications and Allergies Home Medications ?Medication ?Instructions ?Recorded ?Confirmed ?Type aspirin 81 mg tablet,delayed 81 mg PO DAILY 04/14/19 1 04/24/24 History release (Adult Low Dose Aspirin) metformin 500 mg tablet,extended 500 mg PO DAILY #90 t abs 08/18/23 02/22/25 Rx release 24 hr acetaminophen 325 mg capsule 325 mg PO Q6H PRN pain #9 0 caps 06/12/24 02/06/25 Rx pravastatin 40 mg tablet 40 mg PO QHS #90 tabs 02/22/25 Rx sucralfate 1 gram tablet (Carafate) 1 g PO TID PRN ZHENG D #30 tabs 07/10/24 02/06/25 Rx esomeprazole magnesium 40 mg 40 mg PO BIDWM #180 caps 10/11/24 02/22/25 Rx capsule,delayed release atenolol 25 mg tablet 12.5 mg (1/2 x 25 mg) PO CECI LY #45 11/10/24 02/22/25 Rx tabs losartan 50 mg tablet See Rx Instructions .Route 0 12/05/24 02/22/25 Rx .COMPLEX #90 tabs tramadol 50 mg tablet 50 mg PO Q6H PRN pain #60 ta bs 12/18/24 02/06/25 Rx Allergies Allergy/AdvReac Type Severity Reaction Status Date / Time No Known Allergies Allergy Verified 02/22/25 07:19 Vital Signs Vital Signs - 24 hr 02/22/25 07:20 Temperature 97 F L Pulse Rate 71 Respiratory Rate 18 Blood Pressure 128/57 L Pulse Oximetry 98 Oxygen Delivery Room Air Exam Const: General: comfortable and no acute distress HENMT: Face/Nose/Sinus: Normal nares present Eyes: General: appearance normal, both eyes and all related structures Resp: Auscultation: clear to auscultation bilaterally Cardio: Rate: regular rate Rhythm: regular rhythm GI: Inspection: non-distended GI Palp: Yes Soft to palpation Skin: General skin exam: normal color Extrem: General: normal to inspection Psych: Mental Status: mental status grossly normal Assessment and Plan Assessment and plan (1) Colon cancer screening: Code(s): Z12.11 - Encounter for screening for malignant neoplasm of colon Status: Acute Assessment and Plan: colonoscopy
[2025-02-22 08:28] VITALS: BP 111/52; PULSE 52; RESP 17; O2SAT 98
[2025-02-22 08:38] VITALS: BP 112/54; PULSE 52; RESP 19; O2SAT 100
[2025-02-22 08:48] VITALS: BP 126/56; PULSE 55; RESP 15; O2SAT 100
== END 2025-02-22 08:58 | disposition home or self-care (01) ==
PROVIDERS: PCP Family Medicine; Referring Provider Nurse Practitioner Family; Visit Provider Internal Medicine Gastroenterology
PROC: 0DJD8ZZ Inspection of Lower Intestinal Tract, Via Natural or Artificial Opening Endoscopic (ICD-10-PCS; CPT 45378; principal; 2025-02-22 08:30)
DX: Z12.11 Encounter for screening for malignant neoplasm of colon (principal); K64.8 Other hemorrhoids; E11.9 Type 2 diabetes mellitus without complications; I11.9 Hypertensive heart disease without heart failure; I38 Endocarditis, valve unspecified; Z79.82 Long term (current) use of aspirin; Z79.84 Long term (current) use of oral hypoglycemic drugs; Z79.891 Long term (current) use of opiate analgesic; Z98.890 Other specified postprocedural states; Z98.1 Arthrodesis status; Z95.1 Presence of aortocoronary bypass graft; Z86.0100 Personal history of colon polyps, unspecified; Z87.891 Personal history of nicotine dependence; Z80.0 Family history of malignant neoplasm of digestive organs; Z82.49 Family history of ischemic heart disease and other diseases of the circulatory system
CPT/HCPCS: G0105; 82948; J2704; J7120